=== PATIENT | male | born 1960 | race American Indian/Alaskan Native ===

== ENCOUNTER 2021-07-18 06:32 | Day surgery (SDC) | payer OTHER ==
[2021-07-18] MEDS ORDERED: LACTATED RINGERS 1,000 ML ONE (06:55)
--- NOTE | 2021-07-18 07:27 | Anesthesia Consultation ---
Anesthesia Consult and Med Hx Date of service: 07/18/21 - Airway Anesthetic Teeth Evaluation: Good ROM Head & Neck: Adequate Mental/Hyoid Distance: Adequate Mallampati Class: Class II Intubation Access Assessment: Good - Pulmonary Exam CTA: Yes - Cardiac Exam Cardiac Exam: RRR - Pre-Operative Health Status ASA Pre-Surgery Classification: ASA2 Proposed Anesthetic Plan: General - Pulmonary Hx Smoking: Yes (IRREGULAR SMOKER) Hx Sleep Apnea: No (PADMINI PRE SCREEN HIGH RISK) - Cardiovascular System Hx Hypertension: Yes (X 5 YRS) - Central Nervous System Hx Psychiatric Problems: No - Endocrine Hx Non-Insulin Dependent Diabetes: Yes - Hematic Hx Anemia: No - Other Systems Hx Cancer: No
--- NOTE | 2021-07-18 07:27 | Anesthesia Day of Surgery ---
Anesthesia Day of Surgery - Day of Surgery Patient Examined: Yes Patient H&P Reviewed: Yes Patient is NPO: Yes Beta Blockers: No
[2021-07-18] MEDS ORDERED: LIDOCAINE MPF (2%) 20 MG/1 ML VIAL 5 ML ONE (07:41)
[2021-07-18] MEDS ORDERED: ROCURONIUM 50 MG/5 ML INJ IV ONE (07:41)
[2021-07-18] MEDS ORDERED: propofoL 200 MG/20 ML VIAL IV ONE (07:41)
[2021-07-18] MEDS ORDERED: ONDANSETRON 4 MG/2 ML INJ ONE (07:41)
[2021-07-18] MEDS ORDERED: HYDROmorphone 1 MG/1 ML INJ ONE (07:41)
[2021-07-18] MEDS ORDERED: ceFAZolin/Water 2 GM/20 ML 2 GM/20 ML SYRINGE IV ONE (07:46)
[2021-07-18] MEDS ORDERED: BUPIVACAINE/PF (0.5%) 5 MG/1 ML 30 ML VIAL INFILTRATI ONE ×2 (07:47→08:52)
[2021-07-18] MEDS ORDERED: ONDANSETRON 4 MG/2 ML INJ IV PRN (08:00)
[2021-07-18] MEDS ORDERED: HYDROmorphone 1 MG/1 ML INJ IV PRN ×2 (08:00)
[2021-07-18] MEDS ORDERED: ceFAZolin/STERILE WATER 2 GM/20 ML SYRINGE IV NR (08:00)
[2021-07-18] MEDS ORDERED: KETOROLAC 30 MG/1 ML INJ ONE (08:27)
[2021-07-18] MEDS ORDERED: SODIUM CHLORIDE 0.9% IRR 1,500 ML BOTTLE IR ONE (08:36)
[2021-07-18] MEDS ORDERED: NEOSTIGMINE 10MG/10 ML INJ MDV ONE (09:21)
[2021-07-18] MEDS ORDERED: GLYCOPYRROLATE 0.4 MG/2 ML INJ ONE (09:21)
--- NOTE | 2021-07-18 09:41 | Short Stay Summary ---
Short Stay Documentation Date of service: 07/18/21 - History H&P: obtained from office - Allergies and Medications Current Medications: Allergies No Known Allergies Allergy (Verified 07/13/21 15:19) Home Medications Medication Instructions Recorded Confirmed Last Taken Type lisinopriL [Lisinopril] 10 mg PO DAILY 07/13/21 07/13/21 Unknown History Active Medications Cefazolin Sodium (Cefazolin/Sterile Water 2 Gm/20 Ml Syringe) 2 gm IV PREOP NR Stop: 07/18/21 17:00 Hydromorphone HCl (Hydromorphone 1 Mg/1 Ml Inj) 0.25 mg IV Q10MIN PRN PRN Reason: Pain, Moderate (4-6) Stop: 07/18/21 17:00 Hydromorphone HCl (Hydromorphone 1 Mg/1 Ml Inj) 0.5 mg IV Q10MIN PRN PRN Reason: Pain , Severe (7-10) Stop: 07/18/21 17:00 Ondansetron HCl (Ondansetron 4 Mg/2 Ml Inj) 4 mg IV ONCE PRN PRN Reason: Nausea And Vomiting Stop: 07/18/21 17:00 - Brief post op/procedure progress note Date of procedure: 07/18/21 Pre-op diagnosis: rt hernia Post-op diagnosis: same Procedure: rt inguinal hernia repair Anesthesia: SHWETHA Surgeon: JIMENA CHANEY Condition: stable - Hospital course Hospital course: norco in chart - Disposition Condition at discharge: Stable Disposition: 01 HOME / SELF CARE / HOMELESS Short Stay Discharge Plan Follow up with: MAGY DENNISON NP-C [Primary Care Provider] - 7 Days
--- NOTE | 2021-07-18 10:37 | Operative Report ---
DATE OF SURGERY: 07/18/2021 PREOPERATIVE DIAGNOSIS: Right inguinal hernia. POSTOPERATIVE DIAGNOSIS: Right inguinal hernia. PROCEDURE: Right inguinal hernia repair with keyhole mesh. SURGEON: Yosvany Arreguin MD ANESTHESIA: General. ESTIMATED BLOOD LOSS: Minimal. FLUIDS: Crystalloid. COMPLICATIONS: No complications. INDICATIONS: This patient is a 60-year-old gentleman seen in the office, had an elevated PSA, underwent prostate biopsy, was negative earlier this year. The patient also complained of groin pain. On exam, he was found to have a right golf ball sized hernia. Discussed open versus robotic repair. The patient agreed to proceed with open repair. Risks, benefits, complications were explained. DESCRIPTION OF PROCEDURE: The patient was taken to the operative suite, placed in a supine position. After adequate general anesthesia, placed in a supine position and prepped and draped in a sterile fashion. A right inguinal incision was made with a Bovie. Sharp dissection was taken down to the external oblique fascia. Ilioinguinal nerve could be appreciated. It was retracted laterally. Spermatic cord was isolated. Obvious hernia sac could be appreciated. It was opened and no bowel noted in the sac. The sac was excised and sent for routine pathologic evaluation. The mouth of the sac was closed with a 2-0 silk in a suture ligature fashion. Using a keyhole mesh, 2-0 Ethibond was placed in the shelving edge of Poupart's ligament and the conjoined tendon. Copious irrigation was performed. Adequate hemostasis was achieved. External oblique fascia was closed with 2-0 Vicryl in a running fashion, subcutaneous tissue was closed with 2-0 Vicryl in a running fashion. Skin was closed with darnell. 10 mL of 0.25% Marcaine was injected. The patient tolerated the procedure well. Dressing was placed. He was extubated and taken to recovery room in stable condition. TID: [id number] RECEIPT: [id number] MOHIT/PRATIBHA
--- NOTE | 2021-07-18 11:01 | Post Anesthesia Evaluation ---
- Post Anesthesia Evaluation Patient Participated: Yes Airway Patent: Yes Stable Respiratory Function: Yes Nausea/Vomiting: No Temp > 96.8F: Yes Pain Manageable: Yes Adequeate Hydration: Yes Anesthesia Complications: No Block Receding Appropriately: Not Applicable Patient on Ventilator: No
[2021-07-18 15:15] VITALS: BP 159/94
== END 2021-07-18 11:30 | disposition home or self-care (01) ==
LOC: OR 06:32
PROVIDERS: ATTEND Urology
DX: K40.90 Unilateral inguinal hernia, without obstruction or gangrene, not specified as recurrent (principal); E78.00 Pure hypercholesterolemia, unspecified; I10 Essential (primary) hypertension; E11.9 Type 2 diabetes mellitus without complications; F17.210 Nicotine dependence, cigarettes, uncomplicated; Z79.899 Other long term (current) drug therapy; Z98.890 Other specified postprocedural states
CPT/HCPCS: 49505; 82962; 88302; C1781; J0690; J1170; J1815; J1885; J2405; J2704; J2710; J3490; J7120